=== PATIENT | female | born 1985 | race Caucasian/White ===

== ENCOUNTER 2018-12-05 21:20 | Emergency (ER) | payer MEDICAID ==
[~2018-12-05] VITALS: Ht 160 cm; Wt 86.2 kg
[2018-12-05 21:30] VITALS: BP_SYST 136
--- NOTE | 2018-12-05 21:43 | NUR ---
Patient triaged and placed in waiting room. VSS and patient appears in no acute distress at this time. Accompanied by friend and daughter, awaiting available bed, and MD notified of need for MSE.
--- NOTE | 2018-12-05 22:12 | NUR ---
Patient to ER bed 5 to gown for evaluation. Side rails up.
--- NOTE | 2018-12-05 22:15 | NUR ---
ER at bedside examining patient.
--- NOTE | 2018-12-05 22:50 | NUR ---
PT went to radiology.
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
[2018-12-06] MEDS ORDERED: KETOROLAC TROMETHAMINE 60 MG/2 ML VIAL IM ONE
--- NOTE | 2018-12-06 00:13 | NUR ---
Administered toradol IM as ordered. Patient tolerated well. Patient also given sling.
[2018-12-06 00:34] VITALS: BP_SYST 136
--- NOTE | 2018-12-06 00:34 | NUR ---
Patient given written and verbal discharge instructions and verbalizes understanding. ER MD Dr. Dubois discussed with patient the results and treatment provided. Patient in stable condition. ID arm band removed. Rx of norco and ibuprofen given. Patient educated on pain management and to follow up with PMD. Pain Scale 0/10. Opportunity for questions provided and answered. Medication side effect fact sheet provided.
== END 2018-12-06 00:34 | disposition home or self-care (01) ==
LOC: SED 21:20
DX: S43.401A Unspecified sprain of right shoulder joint, initial encounter (principal); S13.4XXA Sprain of ligaments of cervical spine, initial encounter; R03.0 Elevated blood-pressure reading, without diagnosis of hypertension; V43.62XA Car passenger injured in collision with other type car in traffic accident, initial encounter; Y93.89 Activity, other specified; Y92.410 Unspecified street and highway as the place of occurrence of the external cause; Y99.8 Other external cause status
CPT/HCPCS: 72125; 73030; 81025; 96372; 99284; J1885